=== PATIENT | female | born 1990 | race Caucasian/White ===

== ENCOUNTER 2017-11-16 23:32 | Emergency (ER) | payer OTHER ==
[2017-11-16 23:52] LABS: URINE HCG POC HCG NEGATIVE (Negative)
[2017-11-16 23:52] LABS: BILIRUBIN,URINE NEGATIVE (NEG); CLARITY,URINE CLEAR; COLOR,URINE YELLOW; GLUCOSE,URINE NEGATIVE (NEG); NITRITE,URINE NEGATIVE (NEG); PROTEIN,URINE NEGATIVE (NEG-TRACE); UROBILINOGEN,URINE 0.2 mg/dL (0.2 mg/dL)
[2017-11-17 00:06] LABS: BACTERIA,URINE MODERATE /HPF (0-FEW); RBC,URINE 0 /HPF (0-2); SQUAMOUS EPITHELIAL CELL,UR MOD /LPF
[2017-11-17 00:07] LABS: YEAST,URINE PRESENT /HPF
[2017-11-17] MEDS: metroNIDAZOLE 500 MG TABLET PO (01:19)
[2017-11-17] MEDS: AZITHROMYCIN 250 MG TABLET. PO (01:19)
[2017-11-17] MEDS: cefTRIAXone IM 250 MG VIAL IM (01:19)
[2017-11-17] MEDS: KETOROLAC 60 MG/2 ML INJ. IM (01:55)
[2017-11-18 16:19] LABS: CHLAMYDIA PROBE Negative (Negative); GC PROBE Positive (Negative)
== END 2017-11-17 02:23 | disposition home or self-care (01) ==
LOC: ER 11-17 02:23
DX: N39.0 Urinary tract infection, site not specified (principal); N76.0 Acute vaginitis; B96.89 Other specified bacterial agents as the cause of diseases classified elsewhere; N72 Inflammatory disease of cervix uteri
CPT/HCPCS: 76856; 81001; 81025; 87086; 87491; 87591; 96372; 99285-25; J0696; J1885; Q0111; Q0144